=== PATIENT | male | born 1940 | race Caucasian/White ===

== ENCOUNTER 2023-02-02 06:06 | Observation (INO) | payer OTHER ==
[2023-01-27 10:09] LABS: Absolute Lymphocytes (CBC) 1.6 K/uL (0.7-4.9); Hematocrit 45.2 % (39.6-49.0); MCV 89.7 fL (80-100); MPV 8.6 fL (7.6-11.3); Platelets 143 thou/uL (152-406); RBC Red Blood Cell Count 5.04 M/uL (4.33-5.43)
[2023-01-27 10:09] LABS: Specific Gravity 1.024 (1.005-1.030); Urine Bilirubin NEGATIVE (Negative); Urine Blood Negative (Negative); Urine Clarity Clear (Clear); Urine Color Light-Yellow (Yellow); Urine Glucose NEGATIVE (Negative); Urine Protein NEGATIVE (Negative); Urine Urobilinogen Normal (Normal); Urine pH 5.5 (5.0-7.0)
[2023-01-27 10:25] LABS: Protime INR 0.94
[2023-01-27 10:28] LABS: Albumin 3.3 g/dL (3.4-5.0); Bilirubin Total 0.4 mg/dL (0.2-1.0); Potassium 3.9 mEq/L (3.5-5.1); Protein, Total 6.6 g/dL (6.4-8.2)
--- NOTE | 2023-01-27 11:56 | RAD REPORT ---
EXAM DESCRIPTION: RAD - Chest Pa And Lat (2 Views) - 01/27/2023 9:58 am CLINICAL HISTORY: pre op for surgery. Hypertension COMPARISON: No comparisons TECHNIQUE: PA and lateral views of the chest were obtained. FINDINGS: The lungs are clear. Heart size is normal and central vasculature is within normal limits. No pleural effusion or pneumothorax seen. No acute bony finding noted. Lower thoracic mild anterior wedge compression deformities, of indeterminate age. Please correlate with focal pain at these levels . IMPRESSION: No acute cardiopulmonary process.
--- NOTE | 2023-01-27 16:49 | EKG ---
Test Date: 2023-01-27 Test Time: 10:38:07 Acid Mixer: MELISSA MEASUREMENT RESULTS: Intervals: Rate: 67 WA: 202 QRSD: 72 QT: 366 QTc: 386 [place]: P: 12 WA: 202 QRS: 14 T: -22 INTERPRETIVE STATEMENTS: Sinus rhythm with sinus arrhythmia with occasional premature ventricular complexes Otherwise normal ECG No previous ECG available for comparison Electronically Signed On 01-27-23 16:48:46 CHANNEL OPENER OUTSOLES by Kulwant Ledezma
[2023-02-02] MEDS ORDERED: BUPIVACAINE 0.75% (PF) 2 ML SP ONE (06:40)
[2023-02-02] MEDS ORDERED: MORPHINE SULFATE/PF 1 MG/ML (10 ML AMP) ONE (06:41)
[2023-02-02] MEDS ORDERED: GABAPENTIN 100 MG CAP ONE (06:47)
[2023-02-02] MEDS ORDERED: CEFAZOLIN SODIUM 2 GM/VIAL ONE (06:47)
[2023-02-02] MEDS ORDERED: CELECOXIB 100 MG CAPSULE ONE (06:47)
[2023-02-02] MEDS ORDERED: LIDOCAINE 2% MPF 5 ML VIAL ONE (06:47)
[2023-02-02] MEDS ORDERED: EPINEPHRINE/PF 1 MG/ML AMP ONE (06:47)
[2023-02-02] MEDS ORDERED: Oxycodone HCl/Acetaminophen 5/325 MG TAB ONE (06:48)
[2023-02-02] MEDS ORDERED: ACETAMINOPHEN 500 MG TAB ONE (06:48)
[2023-02-02] MEDS ORDERED: Ringers Lactate 1,000 ML IV ONE ×4 (06:48→11:19)
[2023-02-02] MEDS ORDERED: propofoL 1,000 MG/100 ML VIAL IV ONE (06:55)
[2023-02-02] MEDS ORDERED: NS 0.9% VIAL 20 ML ONE (07:02)
[2023-02-02] MEDS ORDERED: EPHEDRINE SULF 50 MG/ML VIAL ONE (07:02)
[2023-02-02] MEDS ORDERED: Phenylephrine HCl 10 MG/ML 1 ML VIAL ONE (07:02)
[2023-02-02] MEDS: TRANEXAMIC ACID 1,000 MG/10 ML VIAL IV ONE ×2 (07:30→09:00)
--- NOTE | 2023-02-02 09:18 | RAD REPORT ---
EXAM DESCRIPTION: RAD - Hip Left 1 View - 02/02/2023 8:49 am CLINICAL HISTORY: TOTAL HIP REPLACEMENT COMPARISON: Hip Left Wo Con dated 01/05/2023 TECHNIQUE: Left hip, four AP views. FINDINGS: Progressive images throughout a left hip arthroplasty demonstrating satisfactory alignment of the acetabular cup, with a superior fixating screw on the final image, with no evidence of compli cations. The femoral stem component was removed. Lateral surgical defect present in the soft tissues. IMPRESSION: Left hip arthroplasty as above.
[2023-02-02] MEDS ORDERED: DOCUSATE NA 100 MG CAP PO PRN (09:20)
[2023-02-02] MEDS ORDERED: ONDANSETRON 4 MG/2 ML VIAL IV PRN (09:20)
--- NOTE | 2023-02-02 09:20 | P.BOP ---
Preoperative diagnosis: left hip arthritis Postoperative diagnosis: same Primary procedure: left CAROLANN Estimated blood loss: 100ccs Anesthesia: Spinal Complications: None Transferred to: Recovery Room Condition: Good
[2023-02-02] MEDS ORDERED: ONDANSETRON 4 MG/2 ML VIAL ONE (09:49)
[2023-02-02 10:24] LABS: Hematocrit 36.9 % (39.6-49.0)
[2023-02-02] MEDS ORDERED: METOCLOPRAMIDE 10 MG/2mL INJ ONE (10:28)
--- NOTE | 2023-02-02 13:58 | OP ---
Date of Procedure: 02/02/2023 Surgeon: Beltran Murray MD Preoperative Diagnosis: Severe left hip arthritis. Postoperative Diagnosis: Severe left hip arthritis. Procedure: Left total hip arthroplasty utilizing the Bebo Accolade and system. Estimated Blood Loss: 100 cc. Complications: There were no complications. Indications For Operation: Mr. Castro is an 82-year-old male, who unfortunately had severe pain relate d to his left hip. His x-rays demonstrate severe osteoarthritis with some subluxation of the head. Risks, benefits, and alternatives of different methods of treating this have been discussed with both the patient and the family. At this time, they offer a total hip arthroplasty. The risks associate d with this particular procedure have been discussed. It has also been discussed prior to the operat ion that one of the strategies will be making in this 82-year-old gentleman is that of maximum stabil ity if possible and realize he may have a slightly longer leg at the conclusion. He does have arthri tic changes on the contralateral side. He and his family state they understand this and agreed to pr oceed. Description Of Procedure: The patient was taken to operating room. He had spinal anesthesia, placem ent of a Josh. He was then placed in the right side down position and he was appropriately position ed using hip positioner. All his bony prominences being checked by Anesthesia with an axillary roll. Following this, his left lower extremity was then prepped and draped in the usual sterile fashion p rocedure. A standard posterolateral incision was taken down carefully through skin and soft tissues. Meticulous hemostasis being maintained using Bovie electrocautery. After a significant amount of a dipose tissue was divided, the fascia was encountered. A small stab wound was made in the fascia and the gluteal tendon was palpated to ensure we were in the correct location. This was followed by div ision of the fascia up to near the tip of the greater trochanter. It was then curved gently backward and the gluteal muscles were then spread using finger pressure. After this, the sciatic nerve was i dentified for later protection and was easily palpated. There was quite a bit of bursal tissue which was removed. Care was taken to avoid injury to the sciatic nerve. After this, the external rotator s and capsule were then taken down carefully as a unit and tagged for later repair. The hip was then dislocated and then cut in standard fashion. The acetabulum was addressed. Again, it was found to be very sclerotic and somewhat dished out. This is in my hands to deepen the acetabulum and proceed first with smaller reamers. However, it was so dished out anteriorly that felt we may end with diffi culties with this technique. Therefore, decision was made to perhaps not deepen as much which may al low for better abductor function, but definitely ream up until we do have bleeding bone. The head wa s measured and the acetabulum was then sequentially reamed in standard fashion. After this, the appr opriately sized cup was placed. It was then hammered in place. It appeared to be very stable. Ther e is somewhat of overhang posteriorly and superiorly, which does give us a better horizontal and aver farideh to assist with stability. It was pushed very diligently with fingers. Decision was made to mov e forward with the femur. The box press operator was used to lateralize. It was then sequentially broached up until the broach appeared to be appropriately sized. After this, an x-ray was taken which demonst rated that the acetabulum was quite a bit overhanging as perceived and may not be completely down med ially. Therefore, decision was made to place a screw. The screw was placed more along the rim. An x-ray was taken, which demonstrated that the screw was not appropriately placed in good bone. It did have a bite initially, but exits the posterior aspect of the acetabulum and decision was made to rem ove the screw. After this, another screw was placed and an x-ray was taken, which demonstrates a goo d bone also has extremely good bite and it was felt that the cup was definitely stable and move forwa rd with irrigation and placement of the liner. The latter was placed without difficulty and the appr opriate size stem was then placed. After the stem was placed, it was then trialed with a +4. +4 rel ocates fairly easily, appears to be stable with full flexion, adduction, and internal rotation to at least 30 to 35 degrees. Decision was made to try with the +8 as this would give him even more stabil ity given his history. This was relocated and he does still come to full extension, it does appear t o be more stable and decision was made to move forward with the +8 sticking with our original plan. Following this, the final ball was then tapped into place and relocated and it was definitely very st able in all motions. The wound was copiously irrigated and the external rotators and capsule were th en repaired back via bone tunnels. The wound was again irrigated and the fascia was closed in a wate rtight fashion using heavy Vicryl sutures. The wound was again irrigated and the skin was closed usi ng 2-0 Vicryl followed by ernie. The patient was then placed in Aquacel dressing and taken to roscoe very room in good condition. There were no complications. /MODL Voice ID: [id number] Report ID: [id number]
--- OUTSIDE RECORDS SUMMARY | 2023-02-02 14:46 | XMS REPORT | Continuity of Care Document ---
:1940 Author Organization [facility] t Address [address] [place] [address] Care Team Providers Name Role Phone Jeffery Borjas Attending Clinician Unavailable Kan Attending Clinician Unavailable Ajibade_O_AH Attending Clinician Unavailable Ige-Odunlevon_J_AH Attending Clinician Unavailable Jeffery Borjas Admitting Clinician Unavailable Kan Admitting Clinician Unavailable Ajibade_O_AH Admitting Clinician Unavailable Ige-Odunlevon_J_AH Admitting Clinician Unavailable Payers Payer Name Policy Type Policy Number Effective Date Expiration Date Eleonora EPPS (MEDICARE [id number] 2020 REPLACEMENT/ADVANT 00:00:00 AGE - PPO) [facility] [place] [facility] [id number] 2019 [facility] 00:00:00 (MEDICARE REPLACEMENT/ADVANT AGE - HMO) Problems Condition Condition Condition Status Onset Resolution Last Treating Co mments Source Name Details Category Date Date Treatment Clinician Date Lumbar Lumbar Problem Active Nancy spondylosi Spondylosi 2-09 Or thope s s 00:00: dic 00 Sports Medicin e 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 Or thope is, is, 00:00: dic bilateral Bilateral 00 Spor ts Medicin e Pain of Pain of Problem Active 2021-03 Nancy left hip Left Hip -15 Orthop e joint Joint 00:00: dic 00 Sports Medicin e Allergies, Adverse Reactions, Alerts Allergy Allergy Status Severity Reaction(s) Onset Inactive Treating Comm ents Source Name Type Date Date Clinician No Known DA Active U [facility] Allergie 05-06 Clear s 00:00: Nelson 00 [facility] Social History Smoking Status Start Date Stop Date Source Never Smoker [facility] Medications Ordered Filled Start Stop Current Ordering Indication Dosage Frequency Signature Comments Components Source Medication Medication Date Date Medication? Clinician (SIG) Name Name meloxicam meloxicam No 1 Q1D meloxicam Nancy 15 mg 15 mg 15 mg Orthope tablet Take tablet Take tablet dic 1 tablet 1 tablet Take 1 Sport s every day every day tablet Med icin by oral by oral every day e route in route in by oral the the route in morning. morning. the morning. Medrol Medrol No 1dose Medrol Nancy (Miguel A) 4 mg (Miguel A) 4 mg pk(s) (Miguel A) 4 mg Orthope tablets in tablets in tablets in dic a dose pack a dose pack a dose Sports Take 1 dose Take 1 dose pack Take Medicin pk by oral pk by oral 1 dose pk e route as route as by oral directed directed route as for 7 days. for 7 days. directed for 7 days. meloxicam meloxicam No 1 Q1D meloxicam Nancy 15 mg 15 mg 15 mg Orthope tablet Take tablet Take tablet dic 1 tablet 1 tablet Take 1 Sport s every day every day tablet Med icin by oral by oral every day e route in route in by oral the the route in morning. morning. the morning. Medrol Medrol No 1dose Medrol Nancy (Miguel A) 4 mg (Miguel A) 4 mg pk(s) (Miguel A) 4 mg Orthope tablets in tablets in tablets in dic a dose pack a dose pack a dose Sports Take 1 dose Take 1 dose pack Take Medicin pk by oral pk by oral 1 dose pk e route as route as by oral directed directed route as for 7 days. for 7 days. directed for 7 days. meloxicam meloxicam No 1 Q1D meloxicam Nancy 15 mg 15 mg 15 mg Orthope tablet Take tablet Take tablet dic 1 tablet 1 tablet Take 1 Sport s every day every day tablet Med icin by oral by oral every day e route in route in by oral the the route in morning. morning. the morning. tamsulosin tamsulosin No tamsulosin Nancy 0.4 mg 0.4 mg 0.4 mg Orthope capsule capsule capsule dic TAKE 1 TAKE 1 TAKE 1 Sports CAPSULE BY CAPSULE BY CAPSULE BY Medicin MOUTH ONCE MOUTH ONCE MOUTH ONCE e DAILY DAILY DAILY Vital Signs Vital Name Observation Time Observation Value Comments Source Height 2022-04-16 00:00:00 63 [in_i] Nancy [facility] BMI (Body Mass 2022-04-16 00:00:00 31 kg/m2 Nancy [facility] Index) Sports Medicine Body Weight 2022-04-16 00:00:00 175 [lb_av] Nancy [facility] Height 2022-03-03 00:00:00 63 [in_i] Nancy [facility] BMI (Body Mass 2022-03-03 00:00:00 31 kg/m2 Nancy [facility] Index) Sports Medicine Body Weight 2022-03-03 00:00:00 175 [lb_av] Nancy [facility] Height 2022-01-20 00:00:00 63 [in_i] Nancy [facility] Body Weight 2022-01-20 00:00:00 175 [lb_av] Nancy [facility] Procedures Procedure Date / Time Performed Performing Clinician Sourc e XR, hip + pelvis, 2022-01-20 00:00:00 Nancy Moore hopedic unilateral, 2 or 3 Sports Medici ne view Knee Surgery [facility] Hernia Repair [facility] Encounters Start End Encounter Admission Attending Care Care Encounter Source Date/Time Date/Time Type Type Clinicians Facility Department ID 2022-05-06 2022-05-06 Outpatient IndioSUSAN LABKevan [id number] [facility] 18:33:00 18:33:[address] [place] [address] 2022-05-06 2022-05-06 Inpatient ADRIÁN BorjasJOSE C SURG [id number] [facility] 16:00:00 16:00:00 [facility] 2022-05-06 2022-05-06 Outpatient ADRIÁN BorjasJOSE C LABO [id number] [facility] 08:00:00 09:00:00 Jeffery Jaramillo [facility] 2022-04-16 2022-04-16 Outpatient FOG_Burke_R AOSM AOSM [id number] Nancy 00:00:00 00:00:00 Rafa [id number] Ortho pe dic Sports Medicin e 2022-04-16 2022-04-16 Jeffery BRUNO [place] - Ortho Nancy 00:00:00 00:00:00 MD Indio: Chelsy Rudd [address] FOG_Ofc dic [facility] A, [facility], [facility] [address] , Ph. [phone] 2022-04-15 2022-04-15 Outpatient FOG_Burke_R AOSM AOSM [id number] Nancy 00:00:00 00:00:00 Rafa [id number] Ortho pe dic Sports Medicin e 2022-03-03 2022-03-03 Outpatient FOG_Burke_R AOSM AOSM [id number] Nancy 00:00:00 00:00:00 Rafa [id number] Ortho pe dic Sports Medicin e 2022-03-03 2022-03-03 Jeffery BRUNO [place] - Ortho [id number] Nancy 00:00:00 00:00:00 MD Indio: Chelsy Rudd [address] [place] FOG_Ofc [facility], [facility], [facility] [address] , Ph. [phone] 2022-01-22 2022-01-22 Outpatient FOG_Burke_R AOSM AOSM [id number] Nancy 00:00:00 00:00:00 Rafa [id number] Ortho pe dic Sports Medicin e 2022-01-22 2022-01-22 Outpatient FOG_Burke_R AOSM AOSM [id number] Nancy 00:00:00 00:00:00 Rafa [id number] Ortho pe dic Sports Medicin e 2022-01-20 2022-01-20 Outpatient FOG_Burke_R AOSM AOSM [id number] Nancy 00:00:00 00:00:00 Rafa [id number] Ortho pe dic Sports Medicin e 2022-01-20 2022-01-20 Jeffery Paul AOSM [place] - Ortho [id number] Nancy 00:00:00 00:00:00 MD Indio: Chelsy Hyman - [facility] [address] FOG_Ofc dic [place], [employer] [facility] [address], [place] [address] , Ph. [phone] 2022-01-12 2022-01-12 Outpatient FOG_Burke_R AOSM AOSM [id number] Nancy 00:00:00 00:00:00 Rafa [id number] Ortho pe dic Sports Medicin e 2021-12-19 2021-12-19 Outpatient FOG_Burke_R AOSM AOSM [id number] Nancy 00:00:00 00:00:00 Rafa [id number] Ortho pe dic Sports Medicin e 2019-11-02 2019-11-02 Outpatient Ajibade_O_A VFP VFP [id number] [id number] [facility] 04:33:00 04:33:00 H [id number] Family Practic e 2019-04-26 2019-04-26 Outpatient Ige-Odunuga VFP VFP [phone] [id number] [facility] 07:26:00 07:26:00 _J_AH [id number] Family Practic e 2019-04-26 2019-04-26 Outpatient Ige-Odunuga VFP VFP [phone] [id number] [facility] 07:26:00 07:26:00 _J_AH [id number] Family Practic e Results Test Description Test Time Test Comments Results Result Comments Source COMPREHENSIVE METABOLIC PANEL 2022-05-06 19:02:00 Test Item Value Reference Range Interpretation Comme nts SODIUM (test code = NA) 142 mmol/L 136-145 N POTASSIUM (test code = K) 4.1 mmol/L 3.5-5.1 N CHLORIDE (test code = CL) 102.0 mmol/L 98-107 N CARBON DIOXIDE (test code = 29.1 mmol/L 21-32 N CO2) GLUCOSE (test code = GLU) 85 mg/dL 70-110 N BLOOD UREA NITROGEN (test 10 mg/dL 7-18 N code = BUN) GLOMERULAR FILTRATION RATE 85.3 >60 T he Glomerular Filtration Rate (test code = GFR) is a calcu lated parameterbased on serum Creati nine, patient age and sex. GF R valuesless than 60 mL/min/ 1.73 square meters are jax cative ofChronic Kidney Disease. Values less than 15 mL/min/ 1.73square meters indicate Kidney failure. The calculation forGFR is based on the CKD-EPI (2020) calculation. Th is formulais race indifferen t and is the recommended for lori for GFRby the [facility].The GFR will not calculate if th e sex is unknown or if thepatien t's age is <18 years. CREATININE (test code = 0.90 mg/dL 0.55-1.30 N CREAT) TOTAL PROTEIN (test code = 7.2 g/dL 6.4-8.2 N PROT) ALBUMIN (test code = ALB) 4.0 g/dL 3.4-5.0 N GLOBULIN (test code = GLOB) 3.2 g/dL 2.2-4.2 N ALBUMIN/GLOBULIN RATIO (test 1.3 0.7-2.0 N code = A/G) CALCIUM (test code = CA) 9.7 mg/dL 8.2-10.1 N BILIRUBIN TOTAL (test code = 0.50 mg/dL 0.2-1.00 N BILT) SGOT/AST (test code = AST) 21.0 U/L 15-37 N SGPT/ALT (test code = ALT) 32.0 U/L 12-78 N ALKALINE PHOSPHATASE TOTAL 105 U/L 46-116 N (test code = ALKP) CBC W/AUTO [id number] 18:37:00 Test Item Value Reference Range Interpretation Comments WHITE BLOOD CELL (test code = WBC) 8.0 K/mm3 5.7-10.5 N RED BLOOD CELL (test code = RBC) 5.50 M/mm3 4.2-5.4 H HEMOGLOBIN (test code = HGB) 16.5 g/dL 12-16 H HEMATOCRIT (test code = HCT) 49.2 % 37-47 H MEAN CELL VOLUME (test code = MCV) 90 fL 80-98 N MEAN CELL HGB (test code = MCH) 30.0 pg 27-34 N MEAN CELL HGB CONCENTRATION (test 33.5 g/dL 30.8-34.1 N code = MCHC) RED CELL DISTRIBUTION WIDTH (test 13.4 % 11-16 N code = RDW) PLT (test code = PLT) 189 K/mm3 130-400 N MEAN PLATELET VOLUME (test code = 10.4 fL 8.9-12.1 N MPV) NEUTROPHIL % (test code = NT%) 58.2 % 45-70 N LYMPHOCYTE % (test code = LY%) 24.6 % 20-40 N MONOCYTE % (test code = MO%) 12.9 % 3-10 H EOSINOPHIL % (test code = EO%) 3.1 % 1-5 N BASOPHIL % (test code = BA%) 0.8 % 0.0-1.1 N NEUTROPHIL # (test code = NT#) 4.63 K/mm3 2.00-7.50 N LYMPHOCYTE # (test code = LY#) 1.96 K/mm3 1.50-4.00 N MONOCYTE # (test code = MO#) 1.03 K/mm3 0.2-0.8 H EOSINOPHIL # (test code = EO#) 0.25 K/mm3 0.04-0.4 N BASOPHIL # (test code = BA#) 0.06 K/mm3 0.02-0.10 N MANUAL DIFF REQUIRED (test code = NO MANUAL DIFF MDIFF) NUCLEATED RED BLOOD CELL (test 0 % 0-0 N code = NRBC) Notes Date/Time Note Provider Source 2022-05-06 17:35:00 [id number] [place] [address] PATIENT NAME: GABINO COLEY ADMIT DATE: ACCOUNT NO: [id number] ISAC Whitley NO: AGE: 82 REPORT TYPE: ELECTROCARDIOGRAM SEX: M ADMITTING PHYSICIAN:Jeffery Borjas MD ATTENDING PHYSICIAN:Jeffery Borjas MD Order:[id number] Reason : PRE OP CLEARANC E >50 Test Date/Time Stamp:WedMay 06 2022 17:35:35Blood Pressure : / mmHGVent. Rate : 061 BPM Atrial Rate : 061 BPM P-R Int : 226 ms QRS Dur : 074 ms QT Int : 386 ms P-R-T Axes : 05 9 017 001 degrees QTc Int : 388 ms Sinus rhythm with marked sinus arrhythmia with 1st degree AV blockOtherwise normal ECGNo previous ECGs availableConfirmed by MECCA NASH MD ([id number]) on 05/08/2022 10:24:22 AM Referred By: Jeffery Borjas Confirmed by:MECCA NASH MD PATIENT NAME: GABINO COLEY .[id number] AVAvailable for patient [id number]
[2023-02-02 15:49] VITALS: BMI 31.1
[2023-02-02] MEDS ORDERED: PNEUMOCOCCAL VACCINE 0.5 ML IMVAC ONE (17:00)
[2023-02-02] MEDS ORDERED: INFLUENZA VACCINE (for 6+ mo) 0.5 ML DOSE IMVAC ONE (17:00)
[2023-02-02] MEDS: CEFAZOLIN 1 GM in NA CHLORIDE 0.9% 50 ML IVPB SCH (17:33)
[2023-02-03] MEDS: CEFAZOLIN 1 GM in NA CHLORIDE 0.9% 50 ML IVPB SCH ×2 (00:49→10:14)
[2023-02-03 06:55] LABS: Hematocrit 40.1 % (39.6-49.0)
[2023-02-03] MEDS: ENOXAPARIN 40 MG/0.4 ML SQ SCH ×3 (09:00→11:41)
[2023-02-03 11:50] VITALS: O2SAT 96
[2023-02-03] MEDS: HYDROCODONE/APAP 7.5/325 MG TAB PO PRN (13:21)
[2023-02-03] MEDS ORDERED: lisinopriL 10 MG TAB PO SCH (21:00)
[2023-02-03] MEDS ORDERED: TAMSULOSIN 0.4 MG SR CAP PO SCH (21:00)
[2023-02-04] MEDS: HYDROCODONE/APAP 7.5/325 MG TAB PO PRN ×2 (01:49→07:16)
[2023-02-04 03:54] LABS: Hematocrit 35.7 % (39.6-49.0)
[2023-02-04] MEDS ORDERED: METOPROLOL TAR 25 MG TAB PO ONE (06:50)
[2023-02-04] MEDS ORDERED: METOPROLOL TAR 50 MG TAB PO SCH (09:00)
[2023-02-04 09:02] LABS: Magnesium 1.9 mg/dL (1.6-2.4); Potassium 3.7 mEq/L (3.5-5.1)
[2023-02-04] MEDS: ENOXAPARIN 40 MG/0.4 ML SQ SCH (09:34)
[2023-02-04] MEDS ORDERED: NA CHLORIDE 0.9% 500 ML IV ONE (11:45)
[2023-02-04] MEDS ORDERED: NA CHLORIDE 0.9% 1,000 ML IV SCH (12:00)
--- NOTE | 2023-02-04 12:17 | RAD REPORT ---
EXAM DESCRIPTION: CT - Chest For Pe Angio - 02/04/2023 11:33 am CLINICAL HISTORY: tachycardia COMPARISON: No comparisons TECHNIQUE: Thin axial CT images of the chest were obtained following administration of 100 mL mL Iso michi 370 IV contrast. Multiplanar reconstructions, and maximum intensity projection reconstructions we re generated and reviewed. Exam utilizes a protocol for optimal evaluation of pulmonary arterial tree . All CT scans are performed using dose optimization technique as appropriate and may include automated exposure control or mA/KV adjustment according to patient size. FINDINGS: Pulmonary arteries are normal. No emboli or other suspicious finding. No acute or signific ant aorta findings. No mass or infiltrate in the lung parenchyma. Subsegmental dependent atelectatic changes. No pleural thickening or pleural effusion. No pneumothorax. No abnormal mediastinal or hilar masses or lymphadenopathy seen. No chest wall mass or abnormal axill iary lymphadenopathy. Mild layering gallbladder sludge. Mild anterior wedge compression deformity at T12. IMPRESSION: No evidence of acute central pulmonary emboli. No other acute findings in the chest. Mild anterior wedge compression deformity at T12 of indeterminate age.
[2023-02-04 12:42] VITALS: BP 131/65; TEMP 98.1
--- NOTE | 2023-02-09 10:16 | P.CNS ---
Date of Consult: 02/02/23 Reason for Consult: Med Management Requesting Physician: Beltran Murray Allergies No Known Allergies Allergy (Verified 02/02/23 06:53) Home Medications: Lisinopril [Zestril] 10 mg PO BEDTIME 01/27/23 Tamsulosin [Flomax*] 0.4 mg PO BEDTIME 01/27/23 Docusate [Colace Cap*] 200 mg PO DAILY PRN cap 02/04/23 Enoxaparin Sodium [Lovenox 40 MG INJ*] 40 mg SQ DAILY #20 syr 02/04/23 Hydrocodone 7.5/APAP 325 [Shiloh 7.5/325 mg*] 2 tab PO Q4H PRN tab 02/04/23 Metoprolol Tartrate [Lopressor*] 25 mg PO BID #0 tab 02/04/23 - Past Medical/Surgical History Diabetic: No -: bph -: htn -: hernia 25 yrs ago - Family History Mother Medical History: Lung disease, Cancer - Social History Alcohol use: No CD- Drugs: No Caffeine use: Yes Place of Residence: Home Physical Examination Temp Pulse Resp BP Pulse Ox 98.1 F 90 16 131/65 94 02/04/23 12:00 02/04/23 12:00 02/04/23 12:00 02/04/23 12:00 02/04/23 12:00
--- NOTE | 2023-02-09 10:21 | P.DS ---
Discharge Date: 02/04/23 Disposition: TRANSFER TO SNF - MEDICAL Discharge Condition: GOOD Vital Signs/Physical Exam: Temp Pulse Resp BP Pulse Ox 98.1 F 90 16 131/65 94 02/04/23 12:00 02/04/23 12:00 02/04/23 12:00 02/04/23 12:00 02/04/23 12:00 Laboratory Data at Discharge: WBC 6.90 thou/uL (4.3-10.9) 01/27/23 09:42 Hgb 12.1 g/dL (13.6-17.9) L D 02/04/23 03:12 Hct 35.7 % (39.6-49.0) L 02/04/23 03:12 Plt Count 143 thou/uL (152-406) L 01/27/23 09:42 PT 10.3 SECONDS (9.5-12.5) 01/27/23 09:42 INR 0.94 01/27/23 09:42 APTT 35.7 SECONDS (24.3-36.9) 01/27/23 09:42 Sodium 140 mEq/L (136-145) 02/04/23 08:05 Potassium 3.7 mEq/L (3.5-5.1) 02/04/23 08:05 BUN 19 mg/dL (7-18) H 02/04/23 08:05 Creatinine 0.85 mg/dL (0.70-1.30) 02/04/23 08:05 Glucose 106 mg/dL (74-106) 02/04/23 08:05 Magnesium 1.9 mg/dL (1.6-2.4) 02/04/23 08:05 Total Bilirubin 0.4 mg/dL (0.2-1.0) 01/27/23 09:42 AST 14 U/L (15-37) L 01/27/23 09:42 ALT 25 U/L (16-61) 01/27/23 09:42 Alkaline Phosphatase 93 U/L (45-117) 01/27/23 09:42 Home Medications: Lisinopril [Zestril] 10 mg PO BEDTIME 01/27/23 Tamsulosin [Flomax*] 0.4 mg PO BEDTIME 01/27/23 Docusate [Colace Cap*] 200 mg PO DAILY PRN cap 02/04/23 Enoxaparin Sodium [Lovenox 40 MG INJ*] 40 mg SQ DAILY #20 syr 02/04/23 Hydrocodone 7.5/APAP 325 [Ross 7.5/325 mg*] 2 tab PO Q4H PRN tab 02/04/23 Metoprolol Tartrate [Lopressor*] 25 mg PO BID #0 tab 02/04/23 New Medications: Enoxaparin Sodium [Lovenox 40 MG INJ*] 40 mg SQ DAILY #20 syr Physician Discharge Instructions: OK TO DC IV AND DC HOME FOLLOW-UP WITH PCP IN 1-2 WEEKS FOLLOW-UP WITH ORTHO IN 1 WEEK RETURN TO THE ER IF SYMPTOMS WORSENS CALL DR. QUESADA AT [phone] IF ANY QUESTIONS REGARDING HOSPITAL STAY Diet: AHA Activity: Fall precautions [facility] [Primary [facility] Provider] - 1-2 Weeks
--- NOTE | 2023-02-09 10:22 | P.PN ---
Subjective Date of Service: 02/03/23 Review of Systems 10-point ROS is otherwise unremarkable Physical Examination - Vital Signs Temperature: 98.1 F Blood Pressure: 131/65 Pulse: 90 Respirations: 16 Pulse Ox (%): 94 - Physical Exam General: Alert, In no apparent distress HEENT: Atraumatic, PERRLA, EOMI Neck: Supple, JVD not distended Respiratory: Clear to auscultation bilaterally, Normal air movement Cardiovascular: Regular rate/rhythm, Normal S1 S2 Gastrointestinal: Normal bowel sounds, No tenderness Musculoskeletal: No tenderness Integumentary: No rashes Neurological: Normal speech, Normal tone, Normal affect Lymphatics: No axilla or inguinal lymphadenopathy - Studies Medications List Reviewed: Yes Assessment & Plan - Advance Directives Does patient have a Living Will: No Does patient have a Durable POA for Healthcare: No
--- NOTE | 2023-02-09 13:46 | EKG ---
Test Date: 2023-02-04 Test Time: 08:56:58 Solar Installer Pv: GRAEME MEASUREMENT RESULTS: Intervals: Rate: 104 OR: 216 QRSD: 68 QT: 328 QTc: 431 [place]: P: 45 OR: 216 QRS: 20 T: 0 INTERPRETIVE STATEMENTS: Sinus tachycardia with 1st degree AV block with occasional premature ventricular complexes and fusion complexes Otherwise normal ECG Compared to ECG 01/27/2023 10:38:07 Fusion complex(es) now present First degree AV block now present Sinus rhythm no longer present Sinus arrhythmia no longer present Electronically Signed On 02-09-23 13:32:28 [employer] EXEC[employer] by Kulwant Ledezma
== END 2023-02-04 16:15 ==
LOC: OR 06:06 → 2ND 14:42
PROVIDERS: ADMIT Orthopaedic Surgery; ATTEND Orthopaedic Surgery
PROC: 0SRB01A Replacement of Left Hip Joint with Metal Synthetic Substitute, Uncemented, Open Approach (ICD-10-PCS; principal; 2023-02-02 07:00)
DX: M16.12 Unilateral primary osteoarthritis, left hip (principal); M06.9 Rheumatoid arthritis, unspecified; I10 Essential (primary) hypertension; N40.0 Benign prostatic hyperplasia without lower urinary tract symptoms; Z85.828 Personal history of other malignant neoplasm of skin
CPT/HCPCS: 27130; 93005 ×2; 85025; 80048; 36415 ×3; 86900; 83735; 86850; 85610; 86901; 88304; 88311; 85730; 85018 ×3; 85014 ×3; 81003; 80053; 71275; 71046; 73501; 97110 ×3; 97116 ×3; 97161; 97530 ×3; Q9967; C1776 ×3; J2704; A4216; J0171; J2765; J2371; J2001; J1650 ×2; J2405 ×2; G0378 ×4; J7120 ×4; J7030; J0690 ×3; G0379; 88305